=== PATIENT | female | born 1995 | race Native Hawaiian/Other Pacific Islander ===

== ENCOUNTER 2020-11-24 15:26 | Outpatient (CLI) | payer OTHER | END 2020-11-24 22:22 | disposition home or self-care (01) | LOC: INF 15:26 | PROVIDERS: ATTEND Internal Medicine | DX: Z23 Encounter for immunization (principal) | CPT/HCPCS: 96372 ==

== ENCOUNTER 2020-12-16 10:13 | Outpatient (CLI) | payer OTHER | END 2020-12-16 22:17 | disposition home or self-care (01) | LOC: INF 10:13 | PROVIDERS: ATTEND Internal Medicine | DX: Z23 Encounter for immunization (principal) | CPT/HCPCS: 96372 ==